=== PATIENT | female | born 1985 | race Caucasian/White ===

== ENCOUNTER 2019-03-12 09:31 | Inpatient (IN) | payer BC ==
--- NOTE | 2019-03-12 11:56 | PN ---
Progress Note - Progress Note Date of Service: 03/12/19 Note: S: Breathing through some contractions, but feeling more comfortable than when she came in O: B/P: 108/74, P: 73, R: 18, T: 97.9 FHR: baseline 135, moderate variability, +accelerations, no declerations UCs: 3-5 min, mild to palpation VE: 2/50/-2, intact A: IUP at 41 5/7 weeks Category I FHR, no evidence of metabolic acidemia Early labor vs false labor P: Offered Kassy the option of staying for re-evaluation vs going home for awhile to await active labor She will eat lunch and decide
[2019-03-12] MEDS ORDERED: Buffered Lidocaine 1% SYRIN* 1 ML/SYRINGE INTRADERM ONE (13:06)
[2019-03-12] MEDS ORDERED: Lactated Ringers 1000 ML Bag* 1,000 ML IV ONE (13:06)
[2019-03-12] MEDS ORDERED: Lactated Ringers 1000 ML Bag* 1,000 ML IV SCH (14:00)
--- NOTE | 2019-03-12 14:13 | HP ---
General Information - Reason for Visit Contractions - General Information Maternal Age: 33 Grav: 1 Para: 0 SAB: 0 IEA: 0 Estimated Due Date: 02/28/19 Determined By: LMP Maternal Blood Type and Rh: O Positive - Results this Serology/RPR Result: Non-Reactive Rubella Result: Immune HBsAg Result: Negative HIV Result: Negative GBS Culture Result: Negative Past Medical History Delivery History: See Records Delivery History Comment: No prior deliveries Pertinent Past Medical History: See Records Past Medical History Comment: Depression/Anxiety - in past. No meds Migraine Pertinent Past Surgical History: See Records Past Surgical History Comment: [place] tooth extraction Pertinent Family History: See Records Family History Comment: Father: hypertension - Antepartal Records Antepartal Records: Reviewed, Complicated by: - Postdates Review of Systems Constitutional: Uncomfortable CV Complaint: No Respiratory: Shortness of Breath: No Gastrointestinal: No Nausea/Vomiting, Normal Bowel Movement Genitourinary: No Leaking Fluid Musculoskeletal: No Epigastric Pain, Contractions Neurological: No Headache, No Visual Changes Movement: Normal Exam Allergies/Adverse Reactions: Allergies shellfish derived Allergy (Severe, Verified 03/12/19 10:59) Edema B/P: 108/74, P: 73, R: 18, T: 97.9 - Measurements Height: 5 ft 9 in Weight: 187 lb Weight in lbs: 187.262023 Body Mass Index (BMI): 27.6 - Exam Breast: Breast Exam Deferred CVA: No CVA Tenderness Extremities: No Edema Heart: Normal Rhythm/Heart Sounds HEENT: No Significant Findings Lungs: Clear Bilaterally Reflexes: DTR 2+ Thyroid: No Thyromegaly - Abdominal Exam Abdomen Exam: Non-Tender, Fundal Height Consistent with Dates - Ultrasound/Biophysical Profile Ultrasound Status: Not Done Targeted Exam Findings See L&D Outpatient Visit Provider Note for Findings: N/A Estimated Weight: 8 lb by autumn Cervical Exam: 2cm Effacement: 50% Station: -2 Presenting Part: Vertex Membrane Status: Intact Bleeding/Discharge: None EFM Findings - External Monitor Findings Baseline Heart Rate: 135 External Monitor Findings: Accelerations Present, No Pattern of Variable or Late Decelerations, Variability Moderate, Baseline Stable Contractions: Regular, Mild, 45-90 Seconds Contraction Frequency: 5-7 mins Assessment/Plan - Assessment IUP at 41 5/7 weeks Category I FHR, no evidence of metabolic acidemia Early labor vs false labor P: Admit to inpatient, given postdates status Consider augmentation if labor not progressing Reassess PRN Anticipate SVB - Obstetrical Risk Factors Obstetrical Risk Factors: Post-Dates - Plan Plan: Admit - Anticipate Vaginal Delivery - Date/Time of Admission Date of Admission: 03/12/19 Time of Admission: 12:55
[2019-03-12 15:12] LABS: Urine Benzodiazepine Screen None Detected (None Detect); Urine Opiates Screen None Detected (None Detect)
--- NOTE | 2019-03-12 19:54 | PN ---
Progress Note - Progress Note Date of Service: 03/12/19 Note: S: Breathing through contractions more now, feels like things are picking up. and parents at bedside for support O: B/P: 114/75, P: 74, R: 16, T: 98.6 FHR: baseline 135, moderate variability, +accelerations, no decelerations UCs: q4-7, mild-moderate to palpation VE: 2/80/-2, intact. Moderate bloody show noted A: IUP at 41 5/7 weeks Category I FHR, no evidence of metabolic acidemia Early labor P: Discussed pain management options for different stages of labor. She also has a professor of music coming in Reassess PRN Anticipate SVB
[2019-03-13] MEDS ORDERED: Acetaminophen TAB* 325 MG PO PRN (00:05)
[2019-03-13] MEDS ORDERED: Dibucaine 1% 28.35 GM TUBE PR PRN (00:05)
[2019-03-13] MEDS ORDERED: Glycerin ADULT SUPP PR PRN (00:05)
--- NOTE | 2019-03-13 00:20 | PROCNOTE ---
[facility] OB: Delivery Note - Delivery A Date of : 03/12/19 Time of : 23:09 Raymond Sex: Female Score 1 Minute: 9 Score 5 Minutes: 9 Gestational Age in Weeks and Days at Delivery: 41 Weeks and 5 Days Delivery Method: Spontaneous Vaginal Labor: Spontaneous Did Patient attempt ?: N/A, No Previous Amniotic Fluid: Meconium Estimated Blood Loss: 400 Anesthesia/Analgesia: None Delivered By: Sisi Varela - Nursery Level of Nursery: Regular/Bedside - Perineum Perineal Injury: 2nd Degree Perineal Injury Comment: 3-0 vicryl rapide Perineal Repair: By Delivering Practioner - Additional Delivery Notes Additional Delivery Notes: admitted at 41 5/7 weeks in early labor. Experienced SROM to meconium fluid at 2210 and began pushing at 2230 with good maternal effort. Slow controlled delivery of head OA to KARMA at 2309, shoulders followed easily with next push. Female delivered to maternal abdomen, HR > 110, vigorous with spontaneous cry. Apgars 9 and 9. Cord clamped x 2 and cut by Sandi's once pulsations ceased. Intact keith placenta at 2321, fundus firm with massage. vagina and perineum carefully inspected, 2nd degree laceration noted, repaired in the usual fashion under local analgesia. Mother and infant stable at time of note, infant . EBL = 400 cc.
[2019-03-13] MEDS ORDERED: Lactated Ringers 1000 ML Bag* 1,000 ML IV SCH (01:00)
[2019-03-13] MEDS ORDERED: Ammonia Inhalant* 1 EA AMP ONE (01:30)
[2019-03-13] MEDS ORDERED: HYDROcodone/ACETAMIN 5-325 MG* 1 TAB PO ONE (02:05)
[2019-03-13] MEDS ORDERED: OXYTOCIN* 10 UNITS/ML 1 ML VIAL ONE (02:46)
[2019-03-13] MEDS ORDERED: Oxytocin 20 UNITS in LR* LOW DOSE 1000 ml IVPB SCH (03:00)
[2019-03-13] MEDS: Ibuprofen TAB* 600 MG PO SCH ×2 (07:51→18:27)
[2019-03-13] MEDS: Docusate CAP* 100 MG PO SCH ×2 (07:51→20:24)
[2019-03-13] MEDS: Witch Hazel PAD* JAR TOPICAL PRN (07:51)
[2019-03-13 08:20] LABS: ABS Lymphocytes 1.2 10^3/ul (1.0-4.8); ABS Monocytes 1.2 10^3/ul (0-0.8); ABS Neutrophils 15.4 10^3/ul (1.5-7.7); Hematocrit 32 % (35-47); Hemoglobin 11.1 g/dL (12.0-16.0); Lymphocyte % 6.6 %; Mean Corpuscular HGB Conc 35 g/dL (31-36); Mean Corpuscular Hemoglobin 32 pg (27-31); Mean Corpuscular Volume 89 fL (80-97); Mean Platelet Volume 9.8 fL (7.4-10.4); Platelet Count 136 10^3/uL (150-450); Red Blood Count 3.52 10^6 /uL (3.70-4.87); Red Cell Distribution Width 14 % (10-15); White Blood Count 17.7 10^3/uL (3.5-10.8)
[2019-03-13] MEDS ORDERED: Simethicone TAB* 80 MG TAB.CHEW PO SCH (08:30)
--- NOTE | 2019-03-13 15:50 | PTEDU ---
Patient Name: RICHARD HOOVER RICHARD HOOVER selected video: Never Ever Shake a Baby to view on 03/13/2019 at 3:47:58 PM from [email or web address] [id number]
--- NOTE | 2019-03-13 16:04 | PTEDU ---
Patient Name: RICHARD HOOVER RICHARD HOOVER selected video: Follow Me Mum: The [employer] to Successful to view on 9 at 4:01:09 PM from [email or web address]
--- NOTE | 2019-03-13 16:19 | PTEDU ---
Patient Name: RICHARD HOOVER RICHARD HOOVER selected video: BBOB: Bonding Through Massage to view on 03/13/2019 at 4:16:58 P M from [email or web address]
[2019-03-13] MEDS ORDERED: Lidocaine 1% INJ* 10 MG/ML 30 ML SDV ONE (19:20)
[2019-03-14 08:31] VITALS: BP 112/60
[2019-03-14] MEDS ORDERED: Ferrous Gluconate TAB* 324 MG TAB PO SCH (09:00)
[2019-03-14] MEDS: Witch Hazel PAD* JAR TOPICAL PRN (09:05)
[2019-03-14] MEDS: Ibuprofen TAB* 600 MG PO SCH ×2 (09:05→15:13)
[2019-03-14] MEDS: Docusate CAP* 100 MG PO SCH ×3 (09:05→15:12)
[2019-03-14] MEDS ORDERED: Influenza VAC *QUAD* 2019-20* 0.5 ML SYRINGE IM ONE (12:10)
== END 2019-03-14 16:25 | disposition home or self-care (01) | DRG 560 ==
LOC: MCHOBOUT 09:31 → MCHOB 12:55
PROVIDERS: ADMIT Midwife; ATTEND Midwife
PROC: 10E0XZZ Delivery of Products of Conception, External Approach (ICD-10-PCS; principal; 2019-03-12)
PROC: 4A1HXCZ Monitoring of Products of Conception, Cardiac Rate, External Approach (ICD-10-PCS; 2019-03-12)
PROC: 0KQM0ZZ Repair Perineum Muscle, Open Approach (ICD-10-PCS; 2019-03-12)
DX: O48.0 Post-term pregnancy (principal); Z37.0 Single live birth; O77.0 Labor and delivery complicated by meconium in amniotic fluid; O70.1 Second degree perineal laceration during delivery; Z3A.41 41 weeks gestation of pregnancy; Z91.013 Allergy to seafood
CPT/HCPCS: 36415; 80307; 85025; 90686; A9270-GY; J2590